=== PATIENT | female | born 1940 | race Caucasian/White ===

== ENCOUNTER 2016-06-14 12:29 | Inpatient (IN) | payer MEDICARE, BC ==
[~2016-06-14] VITALS: Ht 157.5 cm; Wt 113.9 kg
[2016-06-14] VITALS (8 sets, daily range): BP systolic 58–136; BP diastolic 0–111
[~2016-06-14 12:29] MED LIST: AMBIEN10 M1 PO; ASPIRIN ADULT L81 M1 PO; BUMETANIDE2 MG PO; CITALOPRAM HYDR20 MG PO; DELTASONE20 M1 PO; DILTIAZEM HCL90 MG PO; FERROUS SULFAT324 M1 PO; HYDRALAZINE HYD50 MG PO; PROAIR HFA8.5 GM INH; TRAMADOL HCL50 MG PO; VITAMIN D50000 I3 PO; ZITHROMAX250 MG PO; [UNRECOGNIZED DRUG - REMARK]
[2016-06-14] MEDS ORDERED: ALLOPURINOL100 MG PO (13:04)
[2016-06-14] MEDS ORDERED: ULTRAM50 MG PO (13:08)
[2016-06-14] MEDS ORDERED: AMBIEN10 M1 PO (13:08)
[2016-06-14] MEDS ORDERED: CALCI-MIX500 MG PO (13:09)
[2016-06-14] MEDS ORDERED: CELEXA40 MG PO (13:10)
[2016-06-14] MEDS ORDERED: ACETAMINOPHEN325 M2 PO (13:11)
[2016-06-14 13:14] LABS: HEMATOCRIT 39.2 % (37.0-47.0); HEMOGLOBIN 12.3 g/dl (12.0-16.0); MEAN CELL VOLUME 105.9 fl (81.0-99.0); MEAN CORPUSCULAR HGB 33.2 pg (27.0-31.0); MEAN CORPUSCULAR HGB CONC 31.4 g/dl (33.0-37.0); MEAN PLATELET VOLUME 10.5 fl (9.6-12.3); NUCLEATED RED BLOOD CELL 0.2 % (0.0-0.0); PLATELET COUNT AUTOMATED 194 10*3/uL (130-400); RED CELL DISTRI WIDTH 15.6 % (0-14.5); WHITE BLOOD COUNT 15.9 10*3/uL (4.8-10.8)
[2016-06-14 13:37] LABS: BASOPHIL # 0.2 10*3/uL (0-0.1); BASOPHILS 1 % (0-1); LYMPHOCYTE # 0.2 10*3/uL (1.3-4.4); METAMYELOCYTES 1 % (0-0); MYELOCYTES 2 % (0-0); NEUTROPHIL # 14.2 10*3/uL (2.3-7.9); NEUTROPHILS 89 % (47-73); PLATELET SUFFICIENCY NORMAL (NORMAL); TOTAL CELLS COUNTED 100 #CELLS
[2016-06-14 14:11] LABS: POTASSIUM 4.7 mmol/L (3.5-5.1)
[2016-06-14 14:16] LABS: TROPONIN I 0.054 ng/ml (<0.045)
[2016-06-14] MEDS ORDERED: OXYCODONE AND A1 TA9 PO (16:53)
[2016-06-15] VITALS: BP 153/73
[2016-06-15 04:00] VITALS: BP 167/63
[2016-06-15 07:08] LABS: BASO % 0.2 % (0.0-1.0); EOS # 0.1 10*3/uL (0.0-0.4); EOS % 1.4 % (1.0-4.0); HEMATOCRIT 33.3 % (37.0-47.0); HEMOGLOBIN 10.6 g/dl (12.0-16.0); IG # 0.3 10*3/uL (0.0-0.1); LYMPH # 1.3 10*3/uL (1.3-4.4); LYMPH % 14.5 % (27.0-41.0); MEAN CELL VOLUME 106.1 fl (81.0-99.0); MEAN CORPUSCULAR HGB 33.8 pg (27.0-31.0); MEAN CORPUSCULAR HGB CONC 31.8 g/dl (33.0-37.0); MEAN PLATELET VOLUME 10.8 fl (9.6-12.3); MONO # 0.8 10*3/uL (0.1-1.0); MONO % 8.5 % (3.0-9.0); NEUT # 6.7 10*3/uL (2.3-7.9); NEUT % 72.7 % (47.0-73.0); PLATELET COUNT AUTOMATED 155 10*3/uL (130-400); RED BLOOD COUNT 3.14 10*6/uL (4.10-5.10); RED CELL DISTRI WIDTH 15.6 % (0-14.5); WHITE BLOOD COUNT 9.2 10*3/uL (4.8-10.8)
[2016-06-15 07:15] LABS: HEMOGLOBIN A1c 6.1 % (4.8-5.6)
[2016-06-15 07:31] LABS: ALBUMIN 2.2 gm/dl (3.1-4.5); BILIRUBIN, TOTAL 0.4 mg/dl (0.2-1.0); MAGNESIUM 1.8 mg/dL (1.5-2.1); PHOSPHOROUS 5.6 mg/dL (2.5-4.9); POTASSIUM 4.1 mmol/L (3.5-5.1); TOTAL PROTEIN 5.3 gm/dL (6.4-8.2)
[2016-06-15 07:38] LABS: THYROID STIM HORMONE (HS) 0.177 uIU/ml (0.358-4.75)
[2016-06-15 07:43] LABS: VITAMIN D, 25-HYDROXY 61.1 ng/mL (30-100)
[2016-06-15 07:44] LABS: FOLIC ACID 6.06 ng/mL (>5.38)
[2016-06-15 08:00] VITALS: BP 154/5
[2016-06-15] MEDS ORDERED: AMBIEN5 MG PO (10:33)
== END 2016-06-15 12:04 | disposition home or self-care (01) | DRG 189 ==
LOC: ED 12:29 → ICCU 14:33 → EDHOLD 14:33 → ICCU 14:50
PROVIDERS: Emergency Medicine; Internal Medicine
DX: J96.01 Acute respiratory failure with hypoxia (principal); E46 Unspecified protein-calorie malnutrition; N18.6 End stage renal disease; I95.3 Hypotension of hemodialysis; I50.30 Unspecified diastolic (congestive) heart failure; I27.2 Other secondary pulmonary hypertension; F33.9 Major depressive disorder, recurrent, unspecified; Z68.42 Body mass index [BMI] 45.0-49.9, adult; I48.0 Paroxysmal atrial fibrillation; E66.01 Morbid (severe) obesity due to excess calories; N25.0 Renal osteodystrophy; D63.1 Anemia in chronic kidney disease; G47.33 Obstructive sleep apnea (adult) (pediatric); R73.9 Hyperglycemia, unspecified; G47.00 Insomnia, unspecified; G89.29 Other chronic pain; D75.89 Other specified diseases of blood and blood-forming organs; Z99.2 Dependence on renal dialysis; Z80.8 Family history of malignant neoplasm of other organs or systems; Z79.899 Other long term (current) drug therapy

== ENCOUNTER 2016-07-05 11:31 | Emergency (ER) | payer MEDICARE, BC ==
[~2016-07-05] VITALS: Wt 108.9 kg
[~2016-07-05 11:31] MED LIST changes: +ACETAMINOPHEN325 M2 PO; +ALLOPURINOL100 MG PO; +AMBIEN5 MG PO; +CALCI-MIX500 MG PO; +CELEXA40 MG PO; +OXYCODONE AND A1 TA9 PO; +ULTRAM50 MG PO
== END 2016-07-05 12:12 | disposition home or self-care (01) ==
LOC: ED 11:31
DX: Z00.00 Encounter for general adult medical examination without abnormal findings (principal); M53.3 Sacrococcygeal disorders, not elsewhere classified; Z88.0 Allergy status to penicillin